=== PATIENT | male | born 1940 | race Caucasian/White ===

== ENCOUNTER 2017-01-19 07:24 | Day surgery (SDC) | payer OTHER ==
[~2017-01-19] VITALS: Ht 170.2 cm; Wt 73.2 kg
[~2017-01-19 07:24] MED LIST: ASPI-535 PO; CHOLESTEROL PO; DIABETES PO; HIGH BP MED PO
[2017-01-19] MEDS ORDERED: DIABETES (08:33)
[2017-01-19] MEDS ORDERED: HYPERTENSION (08:33)
[2017-01-19] MEDS ORDERED: CHOLESTEROL (08:33)
[2017-01-19] MEDS ORDERED: ASPIRIN (08:33)
[2017-01-19] MEDS ORDERED: LIDOCAINE 2% (SDV) 5 ML INJ ONE (09:04)
[2017-01-19] MEDS ORDERED: PROPOFOL 40 ML ONE (09:04)
[2017-01-19 09:16] VITALS: BP 153/70; PULSE 61; RESP 16
--- NOTE | 2017-01-19 09:45 | OPPN ---
Date/Time of Note Date/Time of Note DATE: 01/19/17 TIME: 09:43 Operative Report Preoperative Diagnosis History of colon polyp Postoperative Diagnosis Small sigmoid colon polyp was removed Internal hemorrhoids Operation/Procedure Performed Colonoscopy and biopsy Anesthesia Type: MAC Estimated blood loss: none Transfusion Required: no Specimens Sigmoid colon polyp Grafts/Implants: none Complications: no SABINO LOYA MD Jan 19, 2017 09:45
--- NOTE | 2017-01-19 10:13 | GILP ---
DATE OF PROCEDURE: 01/19/2017 PREOPERATIVE DIAGNOSIS: History of colon polyps. POSTOP DIAGNOSES: 1. Colonoscopy all the way to the cecum. 2. Small sigmoid colon polyp was removed using the biopsy forceps. 3. Internal hemorrhoids. PROCEDURE PERFORMED: Colonoscopy and biopsy. SURGEON: Kendal Balderas MD ANESTHESIA: INDICATION: Mr. Nikhil Banks is a 76-year-old male patient who had a history of colon polyps. During last colonoscopy multiple flat polyps were removed. The patient was scheduled for followup colonoscopy. The procedure and possible complications were well explained to the patient. He understood and consented to the procedure. DESCRIPTION OF PROCEDURE: Under influence of anesthesia, the colonoscope was carefully introduced in the rectum. Under direct vision it was advanced all the way to the cecum. FINDINGS: There is a small sigmoid colon polyp and it was removed using the biopsy forceps. He had internal hemorrhoids. He tolerated the procedure very well. There is no complications from the procedure. At the end of procedure he was awake with stable vital signs. He was discharged home in care of his family. IMPRESSION: Please see postoperative diagnoses. PLAN: Because of the patient's age, he will not need another screening colonoscopy. Dictated By: MD GIRMA Blankenship/cheyenne/liliana /Document#: [id number]
== END 2017-01-19 12:53 | disposition home or self-care (01) ==
LOC: GIL 07:24
PROVIDERS: ATTEND Internal Medicine Gastroenterology
DX: D12.5 Benign neoplasm of sigmoid colon (principal); K64.8 Other hemorrhoids; E11.9 Type 2 diabetes mellitus without complications; I10 Essential (primary) hypertension; E78.5 Hyperlipidemia, unspecified; N40.0 Benign prostatic hyperplasia without lower urinary tract symptoms
CPT/HCPCS: 82962; 88305